=== PATIENT | female | born 1970 | race Caucasian/White ===

== ENCOUNTER 2024-11-30 02:49 | Emergency (ER) | payer OTHER, SELFPAY ==
[2024-11-30 02:49] VITALS: BMI 23.4
[2024-11-30 02:59] VITALS: BP 135/79
[2024-11-30] MEDS: TORADOL 15 MG IV (03:22)
[2024-11-30 03:38] LABS: % Basophils 0.7 % (0-2); % Eosinophils 2.2 % (0-6); % Immature Granulocytes 0.2 % (0-0.5); % Lymphocytes 35.9 % (20.5-51.1); % Monocytes 8.6 % (1.7-9.3); % Neutrophils 52.4 % (42.2-75.2); Absolute Basophils 0.1 10^3/uL (0-0.2); Absolute Eosinophils 0.2 10^3/uL (0-0.7); Absolute Monocytes 0.7 10^3/uL (0.1-0.6); Absolute Neutrophils 4.3 10^3/uL (1.4-6.5); Hematocrit 40.8 % (37.0-47.0); Hemoglobin 14.4 g/dL (12.0-16.0); Mean Corp Hgb Conc. 35.3 g/dL (33.0-37.0); Mean Corpuscular Hgb 30.3 pg (27.0-31.0); Mean Corpuscular Volume 85.7 fL (81.0-99.0); Mean Platelet Volume 10.3 fL (7.4-10.4); Nucleated Red Blood Cells % 0 %; Platelet Count 268 10^3/uL (130-400); Red Blood Cell Count 4.76 10^6/uL (4.20-5.40); Red Cell Dist. Width 11.9 % (11.5-14.5); White Blood Cell Count 8.3 10^3/uL (4.8-10.8)
[2024-11-30] MEDS: DILAUDID 0.5 MG IV (03:42)
[2024-11-30 03:46] LABS: HCG, Serum Qualitative Screen Negative
[2024-11-30 03:48] LABS: ALT (SGPT) 14 U/L (0-35); AST (SGOT) 19 U/L (14-36); Albumin 4.3 g/dl (3.5-5.0); Alkaline Phosphatase 54 U/L (38-126); Blood Urea Nitrogen 17 mg/dl (7-17); Calcium 9.9 mg/dl (8.4-10.2); Carbon Dioxide 24 mmol/L (22-30); Chloride 106 mmol/L (98-107); Glucose 96 mg/dl (70-99); Lipase 108 U/L (23-300); Potassium 4.1 mmol/L (3.5-5.1); Sodium 140 mmol/L (135-145); Total Bilirubin 0.6 mg/dl (0.2-1.3); Total Protein 6.9 g/dl (6.3-8.2); eGFR > 60.00
--- NOTE | 2024-11-30 04:04 | ED.GENMED ---
History of Present Illness
General
Chief Complaint: Abdominal Pain
Source: patient
Exam Limitations: none
Time Seen by Provider: 11/30/24 03:12
Nursing documentation reviewed up to this point in time: agreed with
History of Present Illness
History of Present Illness:
Pleasant 54-year-old female presenting with left flank pain. Began around 4 PM yesterday and progressively worsened. Patient states that the pain was sharp in nature. It radiated around to the front. She had no nausea or vomiting. She denies
fever, chills, chest pain, or shortness of breath. At time of exam the left flank pain was mostly resolved. Patient denied any urinary symptoms. Patient denies having kidney stone in the past.
Phy Exam
Physical Exam
Physical Exam:
Physical Exam
Vital signs and allergy list reviewed and agreed with.
GENERAL: Alert , in minimal apparent distress
EYE: pupils equal, EOMI, anicteric
NECK: Supple, no significant adenopathy. No masses. Trachea midline
ENT: Oropharynx is clear, mmm.
CARDIAC: Regular rate and rhythm . No M/R/G
LUNGS: Clear breath sounds bilaterally, no acute respiratory distress, no wheezes/rales/rhonchi
ABDOMEN: Soft, minimal focal tenderness left lower quadrant, no r/g, no cvat on the left. Normal BSx4q
NEUROLOGICAL: Alert and oriented, no focal neuro deficits
SKIN: Warm and dry, skin intact.
MUSCULOSKELETAL: No edema, well perfused. Moves all 4 extremities
PSYCH: Normal and appropriate interaction.
Course
Orders/Labs/Results
Orders:
Orders
11/30/24 03:13
CT Abd/pel Without Iv Or Oral Urgent
Comment:
Reason For Exam: l flank pain
Test Result ONCE
11/30/24 03:21
Ketorolac [Toradol] 15 mg .ROUTE .STK-MED ONE
11/30/24 03:22
Ketorolac [Toradol] 15 mg IV NOW STA
11/30/24 03:24
Complete Blood Count/With Diff Urgent
Comprehensive Metabolic Panel Urgent
HCG, Serum Qualitative Screen Urgent
Lipase Urgent
11/30/24 03:41
HYDROmorphone [Dilaudid] 0.5 mg .ROUTE .STK-MED ONE
11/30/24 03:42
HYDROmorphone [Dilaudid] 0.5 mg IV NOW STA
11/30/24 04:29
Urinalysis Reflex To Culture Urgent
Date Specimen was Collected: 11/30/24
Time Specimen was Collected: 04:19
Urine Microscopic Reflex Cult Urgent
Urine Culture Urgent
MICKI Source: U
Specimen Description:
Date Specimen was Collected: 11/30/24
Time Specimen was Collected: 04:19
Abnormal Lab Results
11/30/24 11/30/24
03:24 04:29
Absolute Monos (auto) 0.7 H 10^3/uL
(0.1-0.6)
Ur Occult Blood Reflex 1+ A
(Negative)
Leukocyte Esterase Rfl 3+ A
(Negative)
11/30/24 03:24
11/30/24 03:24
Vital Signs
Initial and Last Documented VS:
Initial Vital Signs
Temp Pulse Resp BP Pulse Ox
97.9 F 75 16 135/79 99
11/30/24 02:59 11/30/24 02:59 11/30/24 02:59 11/30/24 02:59 11/30/24 02:59
Last Documented Vital Signs
Temp Pulse Resp BP Pulse Ox
97.9 F 56 18 118/70 99
11/30/24 02:59 11/30/24 04:30 11/30/24 04:30 11/30/24 04:30 11/30/24 04:30
MDM/Problems Addressed
Differential Diagnosis Includes:
Flank pain, colitis, abdominal pain, kidney stone
*Critical Care Note
Total Time (30-74mins, 75-104mins- exclusive of procedures): Not Applicable
Update Note
Update Note:
CT abdomen and pelvis without IV contrast
IMPRESSION:
Limited assessment without IV contrast.
No obstructing renal stone. No cholecystitis or pancreatitis.
Appendix is normal. No bowel obstruction. Mild inflammation about the descending colon suggesting mild colitis. Correlate with patient's symptoms.
Finalized at 4 AM EST
ED Attending Note
-
Portions of this chart may have been created with voice recognition software.� Occasional wrong word or��sound alike� substitutions may have occurred due to the inherent limitations of voice recognition software.
Discharge Plan
Departure
Patient Disposition: Home (Routine Discharge)
Date of Disposition: 11/30/24
Time of Disposition: 04:46
Patient with high blood pressure during this ER visit?: Yes
Condition: Good
Discharge Problem:
Colitis
Instructions: Colitis, Abdominal Pain, BLOOD PRESSURE
Prescriptions:
New
levofloxacin 750 mg tablet
750 mg PO DAILY 7 Days Qty: 7 0RF
Referrals:
Tika Evans DO [Family Provider] -
Activity Restrictions/Additional Instructions:
Thank You for choosing [facility].
It was a pleasure meeting you and taking part in your care. We hope for your continued healing and wellness.
Please read discharge instructions in their entirety. However, they are for general education and may not describe your exact diagnosis at discharge. Information on your ER visit and medical conditions were discussed with you along with appropriate
follow up information...
If indicated, please take your medications as instructed and indicated on discharge paperwork.
Please schedule a follow up appointment as directed. Call to schedule an appointment
Please return to the emergency department with ANY change in, persisting, or worsening of symptoms. If any of your symptoms do not improve, or persist, or become more severe within 6-12 hours, please return to the emergency department for further
care.
Please return to the emergency department if you develop a headache, neck pain/stiffness, fever greater than 100.4F, chest pain, shortness of breath, persistent nausea, vomiting, slurred speech, difficulty walking, numbness/tingling, weakness, signs
of infection or any other symptoms that are worrisome to you.
If you have any questions or concerns please do not hesitate to call the Hospital at or E-mail me directly at [email or web address]
Interventions
Interventions:
*Risk Screen - Suicide Last Done: 11/30/24 02:59
*General Assessment Last Done: 11/30/24 02:59
*Neglect/Abuse Screening Last Done: 11/30/24 02:59
*ED- Fall Risk Assessment Last Done: 11/30/24 02:59
*ED COVID-19 Vaccine History Last Done: 11/30/24 02:59
*Nursing Disposition Last Done: 11/30/24 04:30
[facility]un[facility]jmyq[facility] Assessment Last Done: 11/30/24 03:28
Discharge Date and Time
Discharge Date/Time: 11/30/24 05:00
Print Language: ITALIAN
[2024-11-30 04:30] VITALS: BP 118/70
[2024-11-30 04:38] LABS: Urine Albumin Negative (Neg - Trace); Urine Bilirubin Negative (Negative); Urine Character Slightly Cloudy (Clear); Urine Color Yellow; Urine Glucose Negative (Negative); Urine Ketone Negative (Negative); Urine Leukocyte 3+ (Negative); Urine Nitrite Negative (Negative); Urine Occult Blood 1+ (Negative); Urine Urobilinogen Negative (Neg - 1+)
[2024-11-30 05:52] LABS: Urine Bacteria Many (Negative); Urine Mucus Many; Urine Squamous Cell >30 /LPF (Few)
[2024-11-30 05:53] LABS: Urine White Cell 60-70 /HPF (0-5)
[2024-11-30 05:54] LABS: Urine Amorphous Seen
== END 2024-11-30 05:00 | disposition home or self-care (01) ==
LOC: EMR 02:49
PROVIDERS: EMERGENCY PHYSICIAN Student in an Organized Health Care Education/Training Program; FAMILY PHYSICIAN Family Medicine
DX: K52.9 Noninfective gastroenteritis and colitis, unspecified (principal); R03.0 Elevated blood-pressure reading, without diagnosis of hypertension
CPT/HCPCS: 99285; 96374; 96375; 74176; 80053; 81003; 81015; 83690; 84703; 85025; 87086

== ENCOUNTER 2025-04-26 06:17 | Day surgery (SDC) | payer BC, SELFPAY ==
[2025-04-22 14:15] VITALS: BMI 24.2
[2025-04-22 14:42] LABS: Hematocrit 42.6 % (37.0-47.0); Hemoglobin 14.4 g/dL (12.0-16.0); Mean Corp Hgb Conc. 33.8 g/dL (33.0-37.0); Mean Corpuscular Volume 89.7 fL (81.0-99.0); Nucleated Red Blood Cells % 0 %; Platelet Count 286 10^3/uL (130-400); Red Cell Dist. Width 11.9 % (11.5-14.5)
[2025-04-22 14:48] LABS: INR 0.91; PT 12.6 Sec (11.4-14.6)
[2025-04-22 14:49] LABS: APTT 30.2 Sec (23.4-35.0)
[2025-04-26] VITALS (8 sets, daily range): BP systolic 94–119; BP diastolic 59–74; BMI 24.2
[2025-04-26] MEDS: TYLENOL 1000 MG PO (08:44)
[2025-04-26] MEDS: NORMOSOL-R/PLASMALYTE-A 1000 IV (08:46)
== END 2025-04-26 12:48 | disposition home or self-care (01) ==
LOC: SDS 06:17
PROVIDERS: ATTENDING PHYSICIAN Obstetrics & Gynecology; FAMILY PHYSICIAN Family Medicine
DX: N95.0 Postmenopausal bleeding (principal); D25.9 Leiomyoma of uterus, unspecified
CPT/HCPCS: 58558; 36415; 85025; 85610; 85730; 88305; 93005